=== PATIENT | male | born 1960 | race African-American/Black ===

== ENCOUNTER 2016-11-06 07:14 | Emergency (ER) | payer OTHER ==
[2016-11-06] VITALS (9 sets, daily range): BP systolic 145–184; BP diastolic 92–118; PULSE 84–115; RESP 16–25; TEMP 98.1; O2SAT 91–100
[~2016-11-06] VITALS: Ht 165.1 cm; Wt 70.0 kg
[~2016-11-06 07:14] MED LIST: ALBU0.08 NEB; ALBUAER3 INH; AMLO10 PO; HYDR-3516 PO; IPRASOL INH; IPRASOL NEB; MEDR4PAK PO; NICO7DIS2 T-DERMAL; SYMB160A INH
--- NOTE | 2016-11-06 07:27 | PD ---
HPI Chief Complaint: Respiratory Symptoms Time Seen by Provider: 07:27 Travel History International Travel<30 days: No Contact w/Intl Traveler<30days: No Traveled to known affect area: No History of Present Illness HPI 56-year-old male came to the emergency room with history of shortness of breath. Patient has history of asthma and says he ran out of all his medications including his nebulizer and inhalers. His symptoms have been going on for past 2 days. Patient has history of hypertension and has not taken his medications for very long time. His blood pressure was elevated in triage. Patient has had multiple admissions for COPD in the past including an ICU. He' s never been intubated he said. He is also complaining of some chest pain. [facility] Past Medical History Narrative Medical List of his past medical history is reviewed from the nursing note. Asthma: Yes Autoimmune Disease: No Cancer: No Cardiovascular Problems: Yes (HTN ) Congestive Heart Failure: No COPD: Yes Coronary Artery Disease: No Diabetes: No Diminished Hearing: No Endocrine: No Gastrointestinal Disorders: No Genitourinary: No Hepatitis: Yes (C) Hypertension: Yes (not treated) Immune Disorder: No Implanted Vascular Access Dvce: No Musculoskeletal: No Neurologic: No Psychiatric: No Reproductive: No Respiratory: Yes (COPD) Immunizations Current: Yes Past Surgical History Oral Surgery: Yes (JAW) Other Surgery: Yes Social History Alcohol Use: Yes (ONCE WEEKLY, ONE PT.) Tobacco Use: No (1 PPD) Substance Use: No Allergies-Medications (Allergen,Severity, Reaction): Coded Allergies: Penicillin (Verified Allergy, Severe, SOB, 11/06/16) Comments List of his allergies reviewed from the nursing note. Reported Meds & Prescriptions Reported Meds & Active Scripts Active Norvasc (Amlodipine Besylate) 10 Mg Tab 10 Mg PO DAILY Prednisone 20 Mg Tab 20 Mg PO BID 5 Days Ventolin Hfa 18 GM Inh (Albuterol Sulfate) 90 Mcg/Act Aer 2 Puff INH Q4H PRN Albuterol Neb (Albuterol Sulfate) 2.5 Mg/3 Ml Neb 2.5 Mg NEB Q4HR NEB While awake Hydrocodone-Acetaminophen 5-325 mg Tab 1 Tab PO HS PRN Duoneb (Ipratropium-Albuterol Neb) 0.5-2.5 Mg/3 Ml Neb 1 Ampule NEB Q6HR NEB Symbicort Inh (Budesonide/Formoterol Fumarate) 160-4.5 Mcg/Act Aero 1 Puff INH Q12HR Duoneb (Ipratropium-Albuterol Neb) 0.5-2.5 Mg/3 Ml Neb 1 Nebule INH Q6HR NEB Reported Proair Hfa 8.5 GM Inh (Albuterol Sulfate) 90 Mcg/Act Aer 1 Puff INH Q4H PRN 108 mcg/actuation Narrative Medication List of his home medications reviewed from the nursing note. Review of Systems Except as stated in HPI: all other systems reviewed are Neg Physical Exam Narrative GENERAL: Awake, alert, moderate distress SKIN: Warm and dry. HEAD: Atraumatic. Normocephalic. EYES: Pupils equal and round. No scleral icterus. No injection or drainage. ENT: No nasal bleeding or discharge. Mucous membranes pink and moist. NECK: Trachea midline. No JVD. CARDIOVASCULAR: Regular rate and rhythm. No murmur appreciated. RESPIRATORY: No accessory muscle use. Decreased air entry bilaterally, end expiratory wheeze GASTROINTESTINAL: Abdomen soft, non-tender, nondistended. Hepatic and splenic margins not palpable. MUSCULOSKELETAL: No obvious deformities. No clubbing. No cyanosis. No edema. NEUROLOGICAL: Awake and alert. No obvious cranial nerve deficits. Motor grossly within normal limits. Normal speech. PSYCHIATRIC: Appropriate mood and affect; insight and judgment normal. Data Data Last Documented VS Vital Signs Date Time Temp Pulse Resp B/P Pulse Ox O2 Delivery O2 Flow Rate FiO2 11/06/16 10:18 91 11/06/16 10:08 115 20 150/92 Room Air 11/06/16 09:00 2.00 11/06/16 07:30 98.1 Orders Electrocardiogram (11/06/16 07:31) Basic Metabolic Panel (Bmp) (11/06/16 07:31) Complete Blood Count With Diff (11/06/16 07:31) Ecg Monitoring (11/06/16 07:31) Iv Access Insert/Monitor (11/06/16 07:31) Oximetry (11/06/16 07:31) Oxygen Administration (11/06/16 07:31) Methylprednisolone So Succ Inj (Solumedr (11/06/16 07:45) Albuterol-Ipratropium Neb (Duoneb Neb) (11/06/16 07:45) Sodium Chloride 0.9% Flush (Ns Flush) (11/06/16 07:45) Troponin I (11/06/16 07:31) B-Type Natriuretic Peptide (11/06/16 07:31) Amlodipine (Norvasc) (11/06/16 07:45) Albuterol Neb (Albuterol Neb) (11/06/16 08:30) Chest, Single Ap (11/06/16 ) Labs Laboratory Tests Test 11/06/16 07:39 White Blood Count 4.3 TH/MM3 Red Blood Count 4.88 MIL/MM3 Hemoglobin 14.6 GM/DL Hematocrit 43.8 % Mean Corpuscular Volume 89.7 FL Mean Corpuscular Hemoglobin 29.9 PG Mean Corpuscular Hemoglobin 33.3 % Concent Red Cell Distribution Width 13.8 % Platelet Count 231 TH/MM3 Mean Platelet Volume 7.6 FL Neutrophils (%) (Auto) 38.0 % Lymphocytes (%) (Auto) 32.7 % Monocytes (%) (Auto) 12.4 % Eosinophils (%) (Auto) 15.5 % Basophils (%) (Auto) 1.4 % Neutrophils # (Auto) 1.6 TH/MM3 Lymphocytes # (Auto) 1.4 TH/MM3 Monocytes # (Auto) 0.5 TH/MM3 Eosinophils # (Auto) 0.7 TH/MM3 Basophils # (Auto) 0.1 TH/MM3 CBC Comment DIFF FINAL Differential Comment Sodium Level 141 MEQ/L Potassium Level 3.7 MEQ/L Chloride Level 106 MEQ/L Carbon Dioxide Level 26.3 MEQ/L Anion Gap 9 MEQ/L Blood Urea Nitrogen 14 MG/DL Creatinine 1.11 MG/DL Estimat Glomerular Filtration 83 ML/MIN Rate Random Glucose 80 MG/DL Calcium Level 8.5 MG/DL Troponin I LESS THAN 0.02 NG/ML B-Type Natriuretic Peptide 2 PG/ML MDM Medical Decision Making Medical Screen Exam Complete: Yes Emergency Medical Condition: Yes Medical Record Reviewed: Yes Interpretation(s) Twelve-lead EKG was reviewed by me. Normal sinus rhythm, normal axis, nonspecific ST-T wave changes. Heart rate of 84 bpm. Differential Diagnosis Asthma exacerbation, COPD exacerbation, ACS, CHF exacerbation Narrative Course 8:04 AM CBC is back and within normal limits. Patient has received 3 DuoNeb treatments along with IV Solu-Medrol bolus. Awaiting for the chemistry and troponin to be resulted. Awaiting for the chest x-ray to be done and resulted. I will reassess him in a bit. 8:24 AM blood test results of back and within normal limit. Awaiting for the BNP and the x-ray. I just reassessed him and he has much better air entry. He still has some end expiratory wheeze and have ordered 3 more albuterol. Procedures EKG Prior to Arrival: No Diagnosis Primary Impression: Acute asthma exacerbation Qualified Code: J45.41 - Moderate persistent asthma with acute exacerbation Referrals: Primary Care Physician 2 days Additional Instructions: Please return to the ER if the condition worsens or any other new concerns. Otherwise follow-up with your primary care. Med/Other Pt SpecificInfo: Prescription(s) given Scripts Amlodipine (Norvasc)10 Mg Tab10 Mg PO DAILY #30 TAB Ref 0 Prov:Jeniffer Guevara MD 11/06/16 Prednisone 20 Mg Tab20 Mg PO BID 5 Days Ref 0 Prov:Jeniffer Guevara MD 11/06/16 Albuterol 18 GM Inh (Ventolin Hfa 18 GM Inh)90 Mcg/Act Aer2 Puff INH Q4H PRN ( SHORTNESS OF BREATH) #1 INHALER Ref 0 Prov:Jeniffer Guevara MD 11/06/16 Albuterol Neb 2.5 Mg/3 Ml Neb2.5 Mg NEB Q4HR NEB #60 NEBULE Ref 0 While awake Prov:Jeniffer Guevara MD 11/06/16 Disposition: 01 DISCHARGE HOME Condition: Stable Jeniffer Guevara MD Nov 06, 2016 07:27
[2016-11-06] MEDS: RESP: ALBUTEROL 2.5 MG/IPRATROPIUM 0.5 MG NEB (SCH) INH (07:41)
[2016-11-06] MEDS ORDERED: methylPREDNISolone SOD SUCC 125 MG/2 ML VIAL IVP ONE (07:45)
[2016-11-06] MEDS ORDERED: SODIUM CHLORIDE 0.9% FLUSH 5 ML FLUSH IVF PRN (07:45)
[2016-11-06 07:47] LABS: AUTOMATED NEUTROPHIL # 1.6 TH/MM3 (1.8-7.7); BASOPHIL # 0.1 TH/MM3 (0-0.2); BASOPHIL % 1.4 % (0.0-2.0); EOSINOPHIL # 0.7 TH/MM3 (0-0.4); EOSINOPHIL % 15.5 % (0.0-4.0); HEMATOCRIT 43.8 % (39.0-51.0); HEMO FLAGS DIFF FINAL; LYMPH % 32.7 % (9.0-44.0); LYMPHOCYTE # 1.4 TH/MM3 (1.0-4.8); MEAN CELL VOLUME 89.7 FL (80.0-100.0); MEAN CORPUSCULAR HEMOGLOBIN 29.9 PG (27.0-34.0); MEAN CORPUSCULAR HGB CONC 33.3 % (32.0-36.0); MONO % 12.4 % (0.0-8.0); PLATELET COUNT 231 TH/MM3 (150-450); RED BLOOD COUNT 4.88 MIL/MM3 (4.50-5.90); RED CELL DISTRIBUTION WIDTH 13.8 % (11.6-17.2); WHITE BLOOD COUNT 4.3 TH/MM3 (4.0-11.0)
[2016-11-06 08:06] LABS: ANION GAP 9 MEQ/L (5-15); BICARBONATE 26.3 MEQ/L (21.0-32.0); BLOOD UREA NITROGEN 14 MG/DL (7-18); CHLORIDE 106 MEQ/L (98-107); GLOMERULAR FILTRATION RATE 83 ML/MIN (>89); POTASSIUM 3.7 MEQ/L (3.5-5.1); SODIUM (NA) 141 MEQ/L (136-145)
[2016-11-06] MEDS: RESP: ALBUTEROL 2.5 MG/3 ML NEB (SCH) INH (08:30)
--- NOTE | 2016-11-06 08:51 | RADRPT ---
EXAM DATE/TIME: 11/06/2016 08:28 [facility] COMPARISON: CHEST SINGLE AP, September 05, 2016, 20:52. INDICATIONS : Short of Breath, Chest Pain. MEDICAL HISTORY : Chronic obstructive pulmonary disease. SURGICAL HISTORY : None. ENCOUNTER: Initial ACUITY: 1 week PAIN SCORE: 5/10 LOCATION: Bilateral chest FINDINGS: A single view of the chest demonstrates the lungs to be symmetrically aerated without evidence of mas s, infiltrate or effusion. The cardiomediastinal contours are unremarkable. Osseous structures are intact. CONCLUSION: Normal examination. Cliff Romero MD on November 06, 2016 at 8:49 Board Certified Radiologist. This report was verified electronically.
[2016-11-06] MEDS ORDERED: PRED20 PO (09:46)
[2016-11-06] MEDS ORDERED: VENTAER INH (09:46)
[2016-11-06] MEDS ORDERED: ALBU0.08 NEB (09:46)
[2016-11-06] MEDS ORDERED: AMLO10 PO (10:15)
--- NOTE | 2016-11-06 14:22 | EKG ---
Date Performed: 11/06/2016 Time Performed: 07:35:49 PTAGE: 56 years EKG: Sinus rhythm NORMAL ECG Compared to prior tracing no significant change PREVIOUS TRACING : 08/21/2016 21.36 DOCTOR: Constantino Luke Interpretating Date/Time 11/06/2016 14:18:19
== END 2016-11-06 10:22 | disposition home or self-care (01) ==
LOC: NEPC 07:14
DX: J45.901 Unspecified asthma with (acute) exacerbation (principal); I10 Essential (primary) hypertension; R07.9 Chest pain, unspecified
CPT/HCPCS: 71010; 80048; 83880; 84484; 85025; 93005; 94640; 94664; 96374; 99285; J2930; J7613

== ENCOUNTER 2016-11-16 21:44 | Emergency (ER) | payer OTHER ==
[~2016-11-16] VITALS: Ht 165.1 cm; Wt 73.0 kg
[~2016-11-16 21:44] MED LIST changes: -MEDR4PAK PO; -NICO7DIS2 T-DERMAL; +PRED20 PO; +VENTAER INH
[2016-11-16 21:46] VITALS: BP 168/94; PULSE 92; RESP 24; TEMP 97.8; O2SAT 92
[2016-11-16 23:00] VITALS: BP 188/118; PULSE 83; RESP 26; O2SAT 89
[2016-11-16 23:05] LABS: AUTOMATED NEUTROPHIL # 3.6 TH/MM3 (1.8-7.7); BASOPHIL # 0.1 TH/MM3 (0-0.2); BASOPHIL % 0.9 % (0.0-2.0); EOSINOPHIL # 0.7 TH/MM3 (0-0.4); EOSINOPHIL % 9.5 % (0.0-4.0); HEMO FLAGS DIFF FINAL; LYMPH % 34.1 % (9.0-44.0); LYMPHOCYTE # 2.5 TH/MM3 (1.0-4.8); MEAN CELL VOLUME 89.6 FL (80.0-100.0); MEAN CORPUSCULAR HGB CONC 33.5 % (32.0-36.0); MONO % 6.5 % (0.0-8.0); PLATELET COUNT 238 TH/MM3 (150-450); RED BLOOD COUNT 4.68 MIL/MM3 (4.50-5.90); WHITE BLOOD COUNT 7.4 TH/MM3 (4.0-11.0)
--- NOTE | 2016-11-16 23:22 | RADRPT ---
EXAM DATE/TIME: 11/16/2016 23:00 [facility] COMPARISON: CHEST SINGLE AP, September 05, 2016, 20:52. CHEST SINGLE AP, November 06, 2016, 8:28. INDICATIONS : Short of breath and congestion for several days. MEDICAL HISTORY : Chronic obstructive pulmonary disease. Asthma. SURGICAL HISTORY : None. ENCOUNTER: Initial ACUITY: 3 days PAIN SCORE: 4/10 LOCATION: Bilateral chest FINDINGS: PA and lateral views of the chest demonstrate the lungs to be symmetrically aerated without evidence of mass, infiltrate or effusion. There is hyperaeration of the lung moran. There is some scarring i n the right apex. The cardiomediastinal contours are unremarkable. Osseous structures are intact. CONCLUSION: No acute disease. No significant change has occurred. Julius Phelps MD on November 16, 2016 at 23:19 Board Certified Radiologist. This report was verified electronically.
[2016-11-16] MEDS ORDERED: oxyCODONE/ACETAMINOPHEN 10 MG/325 MG TAB PO ONE (23:30)
[2016-11-16] MEDS ORDERED: methylPREDNISolone SOD SUCC 125 MG/2 ML VIAL IVP ONE (23:30)
[2016-11-16] MEDS: RESP: ALBUTEROL 2.5 MG/IPRATROPIUM 0.5 MG NEB (SCH) INH (23:40)
[2016-11-17] MEDS ORDERED: PRED20 PO (00:28)
[2016-11-17 00:29] VITALS: BP 164/105; PULSE 92; RESP 16; O2SAT 95
--- NOTE | 2016-11-17 00:29 | PD ---
HPI Chief Complaint: Respiratory Symptoms Time Seen by Provider: 23:02 Travel History International Travel<30 days: No Contact w/Intl Traveler<30days: No Traveled to known affect area: No History of Present Illness HPI 56-year-old male arrives to the ER complaining of shortness of breath wheezing and chest tightness. Symptoms have present for a few hours. Onset occurred at rest. He smokes tobacco. He states symptoms feel similar to prior COPD exacerbations. Typically an albuterol inhaler helps. He did not have one today. He does not recall last time he is steroids. He denies fever. No diaphoresis nausea vomiting and lightheadedness. PFSH Past Medical History Asthma: Yes Autoimmune Disease: No Cancer: No Cardiovascular Problems: Yes (HTN) Congestive Heart Failure: No COPD: Yes Coronary Artery Disease: No Diabetes: No Diminished Hearing: No Endocrine: No Gastrointestinal Disorders: No Genitourinary: No Hepatitis: Yes (C) Hypertension: Yes (not treated) Immune Disorder: No Implanted Vascular Access Dvce: No Musculoskeletal: No Neurologic: No Psychiatric: No Reproductive: No Respiratory: Yes (COPD) Immunizations Current: Yes Past Surgical History Oral Surgery: Yes (JAW) Other Surgery: Yes Social History Alcohol Use: Yes (ONCE WEEKLY) Tobacco Use: Yes (QUIT, RECENTLY SMOKED SOME) Substance Use: No Allergies-Medications (Allergen,Severity, Reaction): Coded Allergies: Penicillin (Verified Allergy, Severe, SOB, 11/16/16) Reported Meds & Prescriptions Reported Meds & Active Scripts Active Hydrocodone-Acetaminophen 5-325 mg Tab 1 Tab PO HS PRN Prednisone 20 Mg Tab 40 Mg PO DAILY 5 Days Norvasc (Amlodipine Besylate) 10 Mg Tab 10 Mg PO DAILY Ventolin Hfa 18 GM Inh (Albuterol Sulfate) 90 Mcg/Act Aer 2 Puff INH Q4H PRN Albuterol Neb (Albuterol Sulfate) 2.5 Mg/3 Ml Neb 2.5 Mg NEB Q4HR NEB While awake Symbicort Inh (Budesonide/Formoterol Fumarate) 160-4.5 Mcg/Act Aero 1 Puff INH Q12HR Duoneb (Ipratropium-Albuterol Neb) 0.5-2.5 Mg/3 Ml Neb 1 Nebule INH Q6HR NEB Review of Systems Except as stated in HPI: all other systems reviewed are Neg Physical Exam Narrative GENERAL: 56-year-old male mild to moderate respiratory distress SKIN: Warm and dry. HEAD: Atraumatic. Normocephalic. EYES: Pupils equal and round. No scleral icterus. No injection or drainage. ENT: No nasal bleeding or discharge. Mucous membranes pink and moist. NECK: Trachea midline. No JVD. CARDIOVASCULAR: Tachycardia. Regular rhythm. RESPIRATORY: Tachypnea. Wheezing present bilaterally. GASTROINTESTINAL: Abdomen soft, non-tender, nondistended. Hepatic and splenic margins not palpable. MUSCULOSKELETAL: No obvious deformities. No clubbing. No cyanosis. No edema. NEUROLOGICAL: Awake and alert. No obvious cranial nerve deficits. Motor grossly within normal limits. Normal speech. PSYCHIATRIC: Appropriate mood and affect; insight and judgment normal. Data Data Last Documented VS Vital Signs Date Time Temp Pulse Resp B/P Pulse Ox O2 Delivery O2 Flow Rate FiO2 11/17/16 00:29 92 16 164/105 95 Nasal Cannula 2 11/16/16 21:46 97.8 Vital signs reviewed Orders Electrocardiogram (11/16/16 ) Complete Blood Count With Diff (11/16/16 22:37) Chest, Pa & Lat (11/16/16 22:37) Methylprednisolone So Succ Inj (Solumedr (11/16/16 23:30) Albuterol-Ipratropium Neb (Duoneb Neb) (11/16/16 23:30) Oxycodone-Acetamin 10-325 Mg (Percocet 1 (11/16/16 23:30) Albuterol Hfa Inh (Proair Hfa Inh) (11/17/16 00:45) Labs Laboratory Tests Test 11/16/16 22:46 White Blood Count 7.4 TH/MM3 Red Blood Count 4.68 MIL/MM3 Hemoglobin 14.1 GM/DL Hematocrit 42.0 % Mean Corpuscular Volume 89.6 FL Mean Corpuscular Hemoglobin 30.0 PG Mean Corpuscular Hemoglobin 33.5 % Concent Red Cell Distribution Width 14.0 % Platelet Count 238 TH/MM3 Mean Platelet Volume 7.6 FL Neutrophils (%) (Auto) 49.0 % Lymphocytes (%) (Auto) 34.1 % Monocytes (%) (Auto) 6.5 % Eosinophils (%) (Auto) 9.5 % Basophils (%) (Auto) 0.9 % Neutrophils # (Auto) 3.6 TH/MM3 Lymphocytes # (Auto) 2.5 TH/MM3 Monocytes # (Auto) 0.5 TH/MM3 Eosinophils # (Auto) 0.7 TH/MM3 Basophils # (Auto) 0.1 TH/MM3 CBC Comment DIFF FINAL Differential Comment MDM Medical Decision Making Medical Screen Exam Complete: Yes Emergency Medical Condition: Yes Medical Record Reviewed: Yes Differential Diagnosis COPD, pneumonia, anemia, pneumothorax Narrative Course CBC & BMP Diagram 11/16/16 22:46 Last 24 hours Impressions Chest X-Ray 11/16/160 Signed Impressions: Service Date/Time: Wednesday, November 16, 2016 23:00 - CONCLUSION: No acute disease. No significant change has occurred. Julius Phelps MD The patient is resting comfortably and feels better, is alert and in no distress. The patients results and examination findings were discussed. The repeat examination is unremarkable and benign. The history, exam, diagnostic testing, and current condition do not suggest any significant pathology to warrant further testing, continued ED treatment, admission, or surgical evaluation at this point. The vital signs have been stable. The patient does not have uncontrollable pain, intractable vomiting, or other significant symptoms. The patient's condition is stable and appropriate for discharge. The patient will pursue further outpatient evaluation with a primary care physician or other designated or consulting physician as indicated in the discharge instructions. The patient expressed understanding and was agreeable with this plan. Diagnosis Primary Impression: COPD (chronic obstructive pulmonary disease) Qualified Code: J44.9 - Chronic obstructive pulmonary disease, unspecified COPD type Referrals: Mariama Ruano MD 2 days Additional Instructions: You have a choice when it comes to health care, and we are glad that you chose [facility] Hopefully, we have met your expectations on today's visit. You are welcome to return to [facility] at any time, as we are committed to meeting the health care needs of our community. Med/Other Pt SpecificInfo: Prescription(s) given Scripts Hydrocodone-Acetaminophen 5-325 mg Tab1 Tab PO HS PRN (pain) #6 TAB Ref 0 Prov:Omid Bailey MD 11/17/16 Prednisone 20 Mg Tab40 Mg PO DAILY 5 Days Ref 0 Prov:Omid Bailey MD 11/17/16 Disposition: 01 DISCHARGE HOME Condition: Stable Omid Bailey C. MD Nov 17, 2016 00:29
[2016-11-17] MEDS ORDERED: HYDR-3516 PO (00:35)
[2016-11-17] MEDS ORDERED: ALBUTEROL SULFATE 90 MCG/ACT HFA 8 GM INHALER INH ONE (00:45)
--- NOTE | 2016-11-17 08:49 | EKG ---
Date Performed: 11/16/2016 Time Performed: 22:47:23 PTAGE: 56 years EKG: Sinus rhythm NORMAL ECG INTERPRETATION BASED ON A DEFAULT AGE OF 40 YEARS NO SIGNIFICANT CHANGE FROM PRIOR ELECTR OCARDIOGRAM. PREVIOUS TRACING : 11/06/2016 07.35 DOCTOR: Cecil Nogueira Interpretating Date/Time 11/17/2016 08:48:12
== END 2016-11-17 00:46 | disposition home or self-care (01) ==
LOC: NEPC 21:44
DX: J44.9 Chronic obstructive pulmonary disease, unspecified (principal); R07.89 Other chest pain; I10 Essential (primary) hypertension; Z87.09 Personal history of other diseases of the respiratory system; Z86.19 Personal history of other infectious and parasitic diseases; Z87.891 Personal history of nicotine dependence
CPT/HCPCS: 71020; 85025; 93005; 94640; 94664; 96374; 99284; J2930

== ENCOUNTER 2017-04-06 22:19 | Inpatient (IN) | payer MEDICAID, OTHER ==
[~2017-04-06] VITALS: Ht 167.6 cm; Wt 73.7 kg
[2017-04-06 22:12] VITALS: O2SAT 98
[~2017-04-06 22:19] MED LIST changes: -ALBUAER3 INH; -IPRASOL NEB
[2017-04-06 22:21] VITALS: BP 175/95; PULSE 87; RESP 40; TEMP 98.2; O2SAT 100
[2017-04-06] MEDS ORDERED: methylPREDNISolone SOD SUCC 125 MG/2 ML VIAL IVP ONE (22:30)
[2017-04-06] MEDS: RESP: ALBUTEROL 2.5 MG/IPRATROPIUM 0.5 MG NEB (SCH) INH ×3 (22:30→22:47)
[2017-04-06 22:40] VITALS: O2SAT 98
[2017-04-06 22:41] LABS: BLOOD GAS BASE EXCESS 1.6 mmol/L (-2-2); BLOOD GAS CARBOXYHEMOGLOBIN 2.5 % (0-4); BLOOD GAS HCO3 27 mmol/L (22-26); BLOOD GAS METHEMOGLOBIN 0.7 % (0-2); BLOOD GAS O2 HGB SATURATION 97 % (90-100); BLOOD GAS OXYGEN CONTENT 21.3 Vol % (12.0-20.0); BLOOD GAS PCO2 52 mmHg (38-42); BLOOD GAS PO2 539 mmHG (61-120); BLOOD GAS TOTAL HGB 14.6 G/DL (12.0-16.0); TEMP CORR TO 98.6
[2017-04-06 22:42] LABS: CRITICAL VALUE YES
[2017-04-06 22:43] LABS: DRAW SITE RT RADIAL; FIO2 100 %; NUMBER OF ARTERIAL PUNCTURES 1; OXYGEN DEVICE NPPV; STAT YES; ULNAR PULSE PRESENT; VENT SETTINGS IPAP12/EPAP5
--- NOTE | 2017-04-06 22:44 | PD ---
HPI Chief Complaint: Respiratory Distress Time Seen by Provider: 22:40 Travel History International Travel<30 days: No Contact w/Intl Traveler<30days: No Traveled to known affect area: No History of Present Illness HPI 57-year-old male that comes here by ambulance for evaluation of shortness of breath. Patient has a chronic history of COPD. Patient called the ambulance because he was very short of breath. Per ambulance report wending unseen patient was having a lot of difficulty breathing. Patient was put on a BiPAP and given breathing treatments as well as nitroglycerin and Lasix and brought here. Initially patient had bad wheezing and rales in the lower lung moran and apparently he also had an oxygen level in the 80s. Patient was put on the BiPAP as well as with breathing treatments and his symptoms improved feeling improved. O2 now is in the high 90s. When I asked the patient this feels similar to his previous COPD exacerbations he states that it is. Per patient he used to smoke but has not smoked in years. Patient states that the chest pain and all the symptoms are similar to his previous episodes. I asked the patient if he had any cold or any sick like symptoms before this started and he tells me that for the past couple days he was kind of sick with fever and runny nose. Per patient uses inhalers at home but today became severe. Symptoms got more severe about an hour ago. He denies any abdominal pain. Nausea or vomiting. No bowel movement or urinary issues. He has a history of heart disease or CHF. Denies any other issues at this time. PFSH Past Medical History Asthma: Yes Autoimmune Disease: No Cancer: No Cardiovascular Problems: Yes (HTN) Congestive Heart Failure: No COPD: Yes Coronary Artery Disease: No Diabetes: No Diminished Hearing: No Endocrine: No Gastrointestinal Disorders: No Genitourinary: No Hepatitis: Yes (C) Hypertension: Yes (not treated) Immune Disorder: No Implanted Vascular Access Dvce: No Musculoskeletal: No Neurologic: No Psychiatric: No Reproductive: No Respiratory: Yes (COPD) Immunizations Current: Yes Tetanus Vaccination: < 5 Years Influenza Vaccination: No Past Surgical History Oral Surgery: Yes (JAW) Other Surgery: Yes Social History Alcohol Use: No Tobacco Use: Yes Substance Use: No Allergies-Medications (Allergen,Severity, Reaction): Coded Allergies: Penicillin (Verified Allergy, Severe, SOB, 11/16/16) Reported Meds & Prescriptions Reported Meds & Active Scripts Active Hydrocodone-Acetaminophen 5-325 mg Tab 1 Tab PO HS PRN Prednisone 20 Mg Tab 40 Mg PO DAILY 5 Days Norvasc (Amlodipine Besylate) 10 Mg Tab 10 Mg PO DAILY Ventolin Hfa 18 GM Inh (Albuterol Sulfate) 90 Mcg/Act Aer 2 Puff INH Q4H PRN Albuterol Neb (Albuterol Sulfate) 2.5 Mg/3 Ml Neb 2.5 Mg NEB Q4HR NEB While awake Symbicort Inh (Budesonide/Formoterol Fumarate) 160-4.5 Mcg/Act Aero 1 Puff INH Q12HR Duoneb (Ipratropium-Albuterol Neb) 0.5-2.5 Mg/3 Ml Neb 1 Nebule INH Q6HR NEB Review of Systems Except as stated in HPI: all other systems reviewed are Neg Physical Exam Narrative GENERAL: Well-nourished, well-developed patient in no apparent distress. SKIN: Warm and dry. HEAD: Atraumatic. Normocephalic. EYES: Pupils equal and round reactive to light and accommodation. No scleral icterus. No injection or drainage. ENT: No nasal bleeding or discharge. Mucous membranes pink and moist. TMs are clear with no sign of infection or perforation. No mastoid tenderness. Ear canals are intact bilaterally. No lymphadenopathy. Nostril mucosa is red and moist with clear mucus noted. No sinus tenderness to palpation noted. Tonsils are not enlarged or swollen. No ulvua Deviation. Tongue is midline. NECK: Trachea midline. No JVD. No meningeal signs noted CARDIOVASCULAR: Regular rate and rhythm. RESPIRATORY: No accessory muscle use. Patient has minimal wheezing in the lower lung moran. Breath sounds equal bilaterally. GASTROINTESTINAL: Abdomen soft, non-tender, nondistended. Hepatic and splenic margins not palpable. MUSCULOSKELETAL: Extremities without clubbing, cyanosis, or edema. No obvious deformities. NEUROLOGICAL: Awake and alert. No obvious cranial nerve deficits. Motor grossly within normal limits. Five out of 5 muscle strength in the arms and legs. Normal speech. PSYCHIATRIC: Appropriate mood and affect; insight and judgment normal. Data Data Last Documented VS Vital Signs Date Time Temp Pulse Resp B/P Pulse Ox O2 Delivery O2 Flow Rate FiO2 04/06/17 22:26 100 BiPAP 100 04/06/17 22:21 98.2 87 40 175/95 Orders Electrocardiogram (04/06/17 22:23) Arterial Blood Gas (Abg) (04/06/17 22:23) Basic Metabolic Panel (Bmp) (04/06/17 22:23) Complete Blood Count With Diff (04/06/17 22:23) Chest, Single Ap (04/06/17 22:23) Ecg Monitoring (04/06/17 22:23) Iv Access Insert/Monitor (04/06/17 22:23) Oximetry (04/06/17 22:23) Oxygen Administration (04/06/17 22:23) Methylprednisolone So Succ Inj (Solumedr (04/06/17 22:30) Albuterol-Ipratropium Neb (Duoneb Neb) (04/06/17 22:30) B-Type Natriuretic Peptide (04/06/17 22:24) Resp Bipap / Cpap Non Invas Vt (04/06/17 ) Troponin I (04/06/17 22:25) Ckmb (Isoenzyme) Profile (04/06/17 22:25) MDM Medical Decision Making Medical Screen Exam Complete: Yes Emergency Medical Condition: Yes Medical Record Reviewed: Yes Differential Diagnosis COPD exacerbation versus asthma versus chest pain versus less likely ACS versus CHF Narrative Course 57-year-old male that presents to the ED for evaluation of shortness of breath. Patient was properly examined and was found to have signs and symptoms very consistent what appears to be an acute COPD exacerbation. Patient has a history of this in the past not reviewed his records and his been here multiple times for the same. I asked the patient this is similar to his. Symptoms since this is the same. He does appear to be more severe today. Patient already on BiPAP by ambulance. Patient will be kept on BiPAP and given 3 breathing treatments here. Patient was given Solu-Medrol. Labs and imaging were ordered. Case was discussed with my attending Dr. Carranza who agrees with plan. Case will be signed out to him pending imaging and labs and likely admission. Diagnosis Primary Impression: COPD (chronic obstructive pulmonary disease) Qualified Code: J44.1 - Chronic obstructive pulmonary disease with acute exacerbation Bucky Aguillon Apr 06, 2017 22:44
[2017-04-06 22:52] LABS: AUTOMATED NEUTROPHIL # 1.7 TH/MM3 (1.8-7.7); BASOPHIL # 0.1 TH/MM3 (0-0.2); BASOPHIL % 1.2 % (0.0-2.0); EOSINOPHIL # 0.4 TH/MM3 (0-0.4); EOSINOPHIL % 8.9 % (0.0-4.0); HEMATOCRIT 44.1 % (39.0-51.0); HEMO FLAGS DIFF FINAL; LYMPH % 44.3 % (9.0-44.0); LYMPHOCYTE # 2.1 TH/MM3 (1.0-4.8); MEAN CELL VOLUME 93.2 FL (80.0-100.0); MEAN CORPUSCULAR HEMOGLOBIN 30.6 PG (27.0-34.0); MEAN CORPUSCULAR HGB CONC 32.8 % (32.0-36.0); MONO % 10.2 % (0.0-8.0); NEUT % 35.4 % (16.0-70.0); PLATELET COUNT 236 TH/MM3 (150-450); RED BLOOD COUNT 4.73 MIL/MM3 (4.50-5.90); RED CELL DISTRIBUTION WIDTH 15.3 % (11.6-17.2); WHITE BLOOD COUNT 4.8 TH/MM3 (4.0-11.0)
[2017-04-06 23:13] LABS: CREATINE KINASE 873 U/L (39-308)
[2017-04-06 23:25] LABS: CKMB 4.3 NG/ML (0.5-3.6)
--- NOTE | 2017-04-06 23:31 | RADRPT ---
EXAM DATE/TIME: 04/06/2017 22:58 [facility] COMPARISON: CHEST PA & LAT, November 16, 2016, 23:00. INDICATIONS : Shortness of breath, wheezing. MEDICAL HISTORY : Chronic obstructive pulmonary disease. Asthma. SURGICAL HISTORY : None. ENCOUNTER: Initial ACUITY: 1 day PAIN SCORE: 0/10 LOCATION: Bilateral chest FINDINGS: The lungs are clear without infiltrate, nodule, or mass. There is no appreciable pleural effusion fo r technique. Heart and mediastinum are unremarkable. CONCLUSION: No acute cardiopulmonary disease. Evon Eaton MD on April 06, 2017 at 23:29 Board Certified Radiologist. This report was verified electronically.
[2017-04-06 23:33] VITALS: BP 143/99; PULSE 66; RESP 16; O2SAT 100
[2017-04-06 23:42] LABS: BICARBONATE 27.5 MEQ/L (21.0-32.0); BLOOD UREA NITROGEN 12 MG/DL (7-18); GLOMERULAR FILTRATION RATE 74 ML/MIN (>89)
[2017-04-06 23:47] LABS: ANION GAP 10 MEQ/L (5-15); CHLORIDE 105 MEQ/L (98-107); POTASSIUM 3.4 MEQ/L (3.5-5.1); SODIUM (NA) 142 MEQ/L (136-145)
[2017-04-06 23:55] VITALS: PULSE 66; RESP 18; O2SAT 99
[2017-04-07] VITALS (10 sets, daily range): BP systolic 135–169; BP diastolic 78–97; PULSE 72–92; RESP 18; TEMP 96.1–97.7; O2SAT 95–98
[2017-04-07] MEDS ORDERED: RESP: ALBUTEROL 2.5 MG/IPRATROPIUM 0.5 MG NEB (SCH) NEB
--- NOTE | 2017-04-07 00:40 | PD ---
Data Data Last Documented VS Vital Signs Date Time Temp Pulse Resp B/P Pulse Ox O2 Delivery O2 Flow Rate FiO2 04/07/17 00:08 97 Nasal Cannula 2.00 04/06/17 23:55 66 18 04/06/17 23:33 143/99 04/06/17 22:40 30 04/06/17 22:21 98.2 Orders Electrocardiogram (04/06/17 22:23) Arterial Blood Gas (Abg) (04/06/17 22:23) Complete Blood Count With Diff (04/06/17 22:23) Chest, Single Ap (04/06/17 22:23) Ecg Monitoring (04/06/17 22:23) Iv Access Insert/Monitor (04/06/17 22:23) Oximetry (04/06/17 22:23) Oxygen Administration (04/06/17 22:23) Methylprednisolone So Succ Inj (Solumedr (04/06/17 22:30) Albuterol-Ipratropium Neb (Duoneb Neb) (04/06/17 22:30) B-Type Natriuretic Peptide (04/06/17 22:24) Resp Bipap / Cpap Non Invas Vt (04/06/17 ) Troponin I (04/06/17 22:25) Ckmb (Isoenzyme) Profile (04/06/17 22:25) CKMB (04/06/17 22:30) CKMB% (04/06/17 22:30) Basic Metabolic Panel (Bmp) (04/06/17 22:30) Albuterol-Ipratropium Neb (Duoneb Neb) (04/07/17 00:00) Labs Laboratory Tests Test 04/06/17 04/06/17 22:25 22:30 Blood Gas Puncture Site RT RADIAL Blood Gas Patient Temperature 98.6 Blood Gas HCO3 27 mmol/L Blood Gas Base Excess 1.6 mmol/L Blood Gas Oxygen Saturation 97 % Arterial Blood pH 7.33 Arterial Blood Partial 52 mmHg Pressure CO2 Arterial Blood Partial 539 mmHG Pressure O2 Arterial Blood Oxygen Content 21.3 Vol % Arterial Blood 2.5 % Carboxyhemoglobin Arterial Blood Methemoglobin 0.7 % Blood Gas Hemoglobin 14.6 G/DL Oxygen Delivery Device NPPV Blood Gas Ventilator Setting IPAP12/EPAP5 Blood Gas Inspired Oxygen 100 % White Blood Count 4.8 TH/MM3 Red Blood Count 4.73 MIL/MM3 Hemoglobin 14.5 GM/DL Hematocrit 44.1 % Mean Corpuscular Volume 93.2 FL Mean Corpuscular Hemoglobin 30.6 PG Mean Corpuscular Hemoglobin 32.8 % Concent Red Cell Distribution Width 15.3 % Platelet Count 236 TH/MM3 Mean Platelet Volume 8.2 FL Neutrophils (%) (Auto) 35.4 % Lymphocytes (%) (Auto) 44.3 % Monocytes (%) (Auto) 10.2 % Eosinophils (%) (Auto) 8.9 % Basophils (%) (Auto) 1.2 % Neutrophils # (Auto) 1.7 TH/MM3 Lymphocytes # (Auto) 2.1 TH/MM3 Monocytes # (Auto) 0.5 TH/MM3 Eosinophils # (Auto) 0.4 TH/MM3 Basophils # (Auto) 0.1 TH/MM3 CBC Comment DIFF FINAL Differential Comment Sodium Level 142 MEQ/L Potassium Level 3.4 MEQ/L Chloride Level 105 MEQ/L Carbon Dioxide Level 27.5 MEQ/L Anion Gap 10 MEQ/L Blood Urea Nitrogen 12 MG/DL Creatinine 1.22 MG/DL Estimat Glomerular Filtration 74 ML/MIN Rate Random Glucose 133 MG/DL Calcium Level 8.9 MG/DL Total Creatine Kinase 873 U/L Creatine Kinase MB 4.3 NG/ML Creatine Kinase MB % 0.5 % Troponin I LESS THAN 0.02 NG/ML B-Type Natriuretic Peptide 5 PG/ML MDM Supervised Visit with LOY: Yes Narrative Course The history, exam, and medical decision-making in the associated mid-level provider note were completed with my assistance. I reviewed and agree with the findings presented. I attest that I had a [id number] encounter with the patient on the same day, and personally performed and documented my assessment and findings in the medical record. *My assessment and Findings: 57 year woman, history of COPD, who was COPD exacerbation. URI prodrome for the past couple days. Worsening trouble breathing today. Treated with Lasix and BiPAP and nitroglycerin with EMS. No history of heart failure. Looks well. No evidence of volume overload. Responded well to BiPAP, was able to come off after about 2 hours in the ED. Continue bronchodilators, steroids, antibiotics, admit for COPD exacerbation. Diagnosis Primary Impression: COPD (chronic obstructive pulmonary disease) Qualified Code: J44.1 - Chronic obstructive pulmonary disease with acute exacerbation Cliff Carranza MD Apr 07, 2017 00:40
[2017-04-07] MEDS ORDERED: RESP: ALBUTEROL 2.5 MG/IPRATROPIUM 0.5 MG NEB (PRN) NEB (00:45)
[2017-04-07] MEDS ORDERED: SODIUM CHLORIDE 0.9% FLUSH 10 ML FLUSH IV FLUSH PRN (00:45)
[2017-04-07] MEDS ORDERED: POTASSIUM CHLORIDE 25 MEQ EFFERVESCENT TAB PO ONE (00:45)
[2017-04-07] MEDS ORDERED: AZITHROMYCIN INJ 500 MG in SODIUM CHLOR 0.9% 250 ML INJ 250 ML IV ONE (00:45)
[2017-04-07] MEDS ORDERED: NALOXONE HCL 0.4 MG/ML AMP IV PRN (00:45)
[2017-04-07] MEDS ORDERED: MORPHINE SULFATE 4 MG/ML INJ IV PUSH PRN (03:15)
--- NOTE | 2017-04-07 03:23 | HHI.HP ---
[facility] Service [facility] Primary Care Physician Ruth Mayo MD Admission Diagnosis COPD exacerbation Diagnoses: Travel History International Travel<30 Days: No Contact w/Intl Traveler <30 Da: No Traveled to Known Affected Are: No History of Present Illness short of rbeath on exertion few days worsened today had a drink etoh drink and that may have exacerbated it no cough no fever did not help with nebs at home was kneeling over after openign door to breathe nephew called ambulance started urinating and defecating and sweating down on knees while waiting oxygen makes it feel better no nausea/no vomting diarrhea abotu 1 week abotu 2-3 x a day has not taken any meds or antibiotics run out of pump Review of Systems Except as stated in HPI: all other systems reviewed are Neg Past Family Social History Past Medical History copd htn Past Surgical History fractured jaw sx umbilical hernia sx Allergies: Coded Allergies: Penicillin (Verified Allergy, Severe, SOB, 11/16/16) Family History mother- dm brother- copd Social History trying to quit , smoked since 10yo used to drink moderately, now drinks about 3 x a week, about two half a pint each time no drugs - weed only Physical Exam Vital Signs Vital Signs Date Time Temp Pulse Resp B/P Pulse Ox O2 Delivery O2 Flow Rate FiO2 04/07/17 01:22 73 18 135/92 Nasal Cannula 4 04/07/17 00:08 97 Nasal Cannula 2.00 04/06/17 23:55 66 18 99 Nasal Cannula 4 04/06/17 23:33 66 16 143/99 100 BiPAP 04/06/17 22:40 98 30 04/06/17 22:26 100 BiPAP 100 04/06/17 22:26 100 BiPAP 100 04/06/17 22:21 98.2 87 40 175/95 100 04/06/17 22:12 98 100 04/06/17 22:12 98 100 Physical Exam GENERAL: This is a well-nourished, well-developed patient, in no apparent distress. SKIN: No rashes, ecchymoses or lesions. Cool and dry. HEAD: Atraumatic. Normocephalic. No temporal or scalp tenderness. EYES: No scleral icterus. No injection or drainage. ENT: Nose without bleeding, purulent drainage or septal hematoma. Airway patent. NECK: Trachea midline. No JVD CARDIOVASCULAR: Regular rate and rhythm without murmurs, gallops, or rubs. RESPIRATORY: Bilateral expiratory wheezing. GASTROINTESTINAL: Abdomen soft, non-tender, nondistended. No guarding. MUSCULOSKELETAL: Extremities without clubbing, cyanosis, or edema. . No calf tenderness. NEUROLOGICAL: Awake and alert. Motor and sensory grossly within normal limits. Normal speech. Laboratory Laboratory Tests Test 04/06/17 04/06/17 22:25 22:30 Blood Gas Puncture Site RT RADIAL Blood Gas Patient Temperature 98.6 Blood Gas HCO3 27 Blood Gas Base Excess 1.6 Blood Gas Oxygen Saturation 97 Arterial Blood pH 7.33 Arterial Blood Partial 52 Pressure CO2 Arterial Blood Partial 539 Pressure O2 Arterial Blood Oxygen Content 21.3 Arterial Blood 2.5 Carboxyhemoglobin Arterial Blood Methemoglobin 0.7 Blood Gas Hemoglobin 14.6 Oxygen Delivery Device NPPV Blood Gas Ventilator Setting IPAP12/EPAP5 Blood Gas Inspired Oxygen 100 White Blood Count 4.8 Red Blood Count 4.73 Hemoglobin 14.5 Hematocrit 44.1 Mean Corpuscular Volume 93.2 Mean Corpuscular Hemoglobin 30.6 Mean Corpuscular Hemoglobin 32.8 Concent Red Cell Distribution Width 15.3 Platelet Count 236 Mean Platelet Volume 8.2 Neutrophils (%) (Auto) 35.4 Lymphocytes (%) (Auto) 44.3 Monocytes (%) (Auto) 10.2 Eosinophils (%) (Auto) 8.9 Basophils (%) (Auto) 1.2 Neutrophils # (Auto) 1.7 Lymphocytes # (Auto) 2.1 Monocytes # (Auto) 0.5 Eosinophils # (Auto) 0.4 Basophils # (Auto) 0.1 CBC Comment DIFF FINAL Differential Comment Sodium Level 142 Potassium Level 3.4 Chloride Level 105 Carbon Dioxide Level 27.5 Anion Gap 10 Blood Urea Nitrogen 12 Creatinine 1.22 Estimat Glomerular Filtration 74 Rate Random Glucose 133 Calcium Level 8.9 Total Creatine Kinase 873 Creatine Kinase MB 4.3 Creatine Kinase MB % 0.5 Troponin I LESS THAN 0.02 B-Type Natriuretic Peptide 5 Result Diagram: 04/06/17222904/06/172229 Imaging Last 48 hours Impressions Chest X-Ray 04/06/17 1908 Signed Impressions: Service Date/Time: Thursday, April 06, 2017 22:58 - CONCLUSION: No acute cardiopulmonary disease. Evon Eaton MD Assessment and Plan Assessment and Plan Impression: COPD exacerbation History of hypertension Plan: Patient with severe COPD exacerbation upon arrival with dramatic presentation where he was Really short of breath and has to run to open the door of his room and eventually kneel down to breathe. Likely was also having panic attacks. Brought in by EMS on BiPAP. Patient was on BiPAP for a few hours in ER and was eventually weaned off. Currently on nasal cannula but is still having active wheezing. Able to complete sentences. Would continue IV steroids every 6 hours. Nebulizers scheduled every 6 hours, and every 2 hours when necessary. Continue azithromycin by mouth. BNP is within normal limits. No peripheral edema. Can consider to do walk test once patient is stable to be discharged home. DVT prophylaxiswith Lovenox. GI prophylaxis on pantoprazole. Discussed Condition With patient, ER MD, pt's nurse Physician Certification Order for Inpatient Services The services are ordered in accordance with Medicare regulations or non- Medicare payer requirements, as applicable. In the case of services not specified as inpatient-only, they are appropriately provided as inpatient services in accordance with the 2-midnight benchmark. days is the estimated time the patient will need to remain in the hospital, assuming treatment plan goals are met and no additional complications. Eros Dominique MD Apr 07, 2017 03:23
[2017-04-07] MEDS ORDERED: PANTOPRAZOLE SOD 20 MG DELAYED RELEASE TAB PO ONE (04:00)
[2017-04-07] MEDS: RESP: ALBUTEROL 2.5 MG/IPRATROPIUM 0.5 MG NEB (SCH) NEB ×4 (04:26→22:19)
[2017-04-07] MEDS: ACETAMINOPHEN/HYDROcodone 325 MG/5 MG TAB PO PRN ×4 (05:34→23:58)
[2017-04-07] MEDS: methylPREDNISolone SOD SUCC 40 MG/1 ML VIAL IV PUSH SCH ×4 (05:34→23:53)
[2017-04-07] MEDS ORDERED: PANTOPRAZOLE SOD 40 MG DELAYED RELEASE TAB PO SCH (06:00)
[2017-04-07] MEDS: ENOXAPARIN SODIUM 40 MG/0.4 ML SYRINGE SQ SCH (08:28)
[2017-04-07] MEDS: BUDESONIDE-FORMOTEROL 160/4.5 MCG INHALER INH SCH ×2 (08:28→21:46)
[2017-04-07] MEDS: AZITHROMYCIN 250 MG TAB PO SCH (08:29)
[2017-04-07] MEDS: PANTOPRAZOLE SOD 40 MG DELAYED RELEASE TAB PO SCH ×2 (08:29→08:30)
[2017-04-07] MEDS: SODIUM CHLORIDE 0.9% FLUSH 10 ML FLUSH IV FLUSH SCH ×2 (08:30→21:00)
--- NOTE | 2017-04-07 15:24 | EKG ---
Date Performed: 04/06/2017 Time Performed: 22:21:40 PTAGE: 57 years EKG: Sinus rhythm NORMAL ECG Compared to prior tracing no significant change PREVIOUS TRACING 11/16/2016 @22.47 DOCTOR: Corey Valencia Interpretating Date/Time 04/07/2017 15:23:00
[2017-04-08] VITALS: BP 121/73; PULSE 67; RESP 17; TEMP 96; O2SAT 98
[2017-04-08 04:00] VITALS: BP 119/79; PULSE 68; RESP 17; TEMP 96.4; O2SAT 97
[2017-04-08] MEDS: RESP: ALBUTEROL 2.5 MG/IPRATROPIUM 0.5 MG NEB (SCH) NEB ×2 (04:51→07:16)
[2017-04-08] MEDS: methylPREDNISolone SOD SUCC 40 MG/1 ML VIAL IV PUSH SCH ×2 (06:09→12:39)
[2017-04-08] MEDS: ACETAMINOPHEN/HYDROcodone 325 MG/5 MG TAB PO PRN ×2 (06:09→12:40)
[2017-04-08 07:19] VITALS: O2SAT 99
[2017-04-08 08:00] VITALS: BP 153/95; PULSE 75; RESP 18; TEMP 97.1; O2SAT 97
[2017-04-08 08:56] LABS: AUTOMATED NEUTROPHIL # 8.5 TH/MM3 (1.8-7.7); BASOPHIL % 0.2 % (0.0-2.0); HEMATOCRIT 42.4 % (39.0-51.0); HEMO FLAGS DIFF FINAL; LYMPH % 5.5 % (9.0-44.0); LYMPHOCYTE # 0.5 TH/MM3 (1.0-4.8); MEAN CELL VOLUME 92.7 FL (80.0-100.0); MEAN CORPUSCULAR HEMOGLOBIN 30.2 PG (27.0-34.0); MEAN CORPUSCULAR HGB CONC 32.6 % (32.0-36.0); MONO % 4.2 % (0.0-8.0); NEUT % 90.1 % (16.0-70.0); PLATELET COUNT 225 TH/MM3 (150-450); RED BLOOD COUNT 4.58 MIL/MM3 (4.50-5.90); RED CELL DISTRIBUTION WIDTH 14.8 % (11.6-17.2); WHITE BLOOD COUNT 9.4 TH/MM3 (4.0-11.0)
[2017-04-08] MEDS: PANTOPRAZOLE SOD 40 MG DELAYED RELEASE TAB PO SCH ×2 (09:00→09:39)
[2017-04-08 09:28] LABS: BICARBONATE 27.5 MEQ/L (21.0-32.0); POTASSIUM 4.2 MEQ/L (3.5-5.1)
[2017-04-08] MEDS: BUDESONIDE-FORMOTEROL 160/4.5 MCG INHALER INH SCH (09:38)
[2017-04-08] MEDS: SODIUM CHLORIDE 0.9% FLUSH 10 ML FLUSH IV FLUSH SCH (09:39)
[2017-04-08] MEDS: AZITHROMYCIN 250 MG TAB PO SCH (09:39)
[2017-04-08] MEDS: ENOXAPARIN SODIUM 40 MG/0.4 ML SYRINGE SQ SCH (09:40)
[2017-04-08] MEDS ORDERED: HYDR-3516 PO (10:43)
[2017-04-08] MEDS ORDERED: VENTAER INH (10:43)
[2017-04-08] MEDS ORDERED: PRED20 PO (10:43)
[2017-04-08] MEDS ORDERED: SYMB160A INH (10:43)
[2017-04-08] MEDS ORDERED: AMLO10 PO (10:43)
[2017-04-08] MEDS ORDERED: AZIT250T3 PO (10:43)
[2017-04-08] MEDS ORDERED: IPRASOL INH (10:43)
[2017-04-08] MEDS ORDERED: ALBU0.08 NEB (10:43)
--- NOTE | 2017-04-08 11:12 | HHI.DS ---
Discharge Summary Admission Date Apr 07, 2017 at 00:42 Discharge Date: Apr 08, 2017 Admitting Diagnosis COPD exacerbation (1) COPD (chronic obstructive pulmonary disease) ICD Code: J44.9 Procedures None Brief History - From Admission short of breath on exertion few days worsened today had a drink etoh drink and that may have exacerbated it as well as resumed smoking cigarettes and marijuana for several days, last used on 03/28/17 (per pt) . Resumed smoking behaviors after of significant other (over 20 years together) and said he was doing so because he was depressed and "trying to cope ". Has had cough and and painful "stomach muscles because of cough" and been taking "two Lortab 5's" to decrease pain and also sleep. no fever did not help with nebs at home was kneeling over after opening door to breathe nephew called ambulance started urinating and defecating and sweating down on knees while waiting oxygen makes it feel better no nausea/no vomiting diarrhea about 1 week about 2-3 x a day has not taken any medications or antibiotics ran out of inhaler/nebulizer "breathing medications" about one month ago. CBC/BMP: 04/08/17 0748 04/08/17 0748 Significant Findings Laboratory Tests Test 04/06/17 04/06/17 04/08/17 22:25 22:30 07:48 Blood Gas HCO3 27 mmol/L (22-26) Arterial Blood pH 7.33 (7.380-7.420) Arterial Blood Partial 52 mmHg (38-42) Pressure CO2 Arterial Blood Partial 539 mmHG Pressure O2 (61-120) Arterial Blood Oxygen Content 21.3 Vol % (12.0-20.0) Lymphocytes (%) (Auto) 44.3 % 5.5 % (9.0-44.0) (9.0-44.0) Monocytes (%) (Auto) 10.2 % (0.0-8.0) Eosinophils (%) (Auto) 8.9 % (0.0-4.0) Neutrophils # (Auto) 1.7 TH/MM3 8.5 TH/MM3 (1.8-7.7) (1.8-7.7) Potassium Level 3.4 MEQ/L (3.5-5.1) Estimat Glomerular Filtration 74 ML/MIN (>89) 88 ML/MIN (>89) Rate Random Glucose 133 MG/DL 137 MG/DL (74-106) (74-106) Total Creatine Kinase 873 U/L (39-308) Creatine Kinase MB 4.3 NG/ML (0.5-3.6) Troponin I LESS THAN 0.02 NG/ML (0.02-0.05) Neutrophils (%) (Auto) 90.1 % (16.0-70.0) Lymphocytes # (Auto) 0.5 TH/MM3 (1.0-4.8) Imaging Last Impressions Chest X-Ray 04/06/172222 Signed Impressions: Service Date/Time: Tuesday, April 06, 2017 22:58 - CONCLUSION: No acute cardiopulmonary disease. Evon Eaton MD PE at Discharge GENERAL: pt encountered laying a bed, awake, in NAD SKIN: Warm and dry. HEAD: Normocephalic. EYES: No scleral icterus. No injection or drainage. NECK: Supple, trachea midline. No lymphadenopathy. CARDIOVASCULAR: Regular rate and rhythm without murmurs, gallops, or rubs. RESPIRATORY: Slight inhalation wheeze noted base of right lung. Mild expiratory wheeze heard in left upper lobe. No accessory muscle use. GASTROINTESTINAL: Abdomen soft, non-tender, nondistended. MUSCULOSKELETAL: No cyanosis, or edema. PSYCHIATRIC: A&Ox3, noted sadness related to of his female significant other (20 year+ relationship) within the past 3 weeks. Pt mourning. Hospital Course Patient came to [facility] on 04/06/17 with severe COPD exacerbation. He was brought in by EMS on BiPAP and remained on BiPAP for a few hours in ED before being weaned off and transitioned to nasal cannula with active wheezing. While hospitalized, pt received steroids and breathing treatments (duo nebs and Symbicort), Azithromycin 500 mg daily, as well as pain medication for diaphragmatic pain secondary to cough. Pt was able to walk to the bathroom without dyspnea upon exertion over the course of the day on 04/07/17. Condition improved with pt being discharged on 04/08/17. Pt Condition on Discharge: Stable Discharge Disposition: Discharge Home Discharge Time: <= 30 minutes Discharge Instructions DIET: Follow Instructions for: As Tolerated, No Restrictions Activities you can perform: Regular-No Restrictions Follow up Referrals: PCP Follow-up - 1 Week New Medications: Azithromycin (Azithromycin) 250 Mg Tab 500 MG PO DAILY COPD #3 TAB Changed Medications: Hydrocodone-Acetaminophen (Hydrocodone-Acetaminophen) 5-325 mg Tab 1 TAB PO Q6HR PRN pain #20 Ref 0 TAB (Changed from: HS; 6) Prednisone (Prednisone) 20 Mg Tab 40 MG PO BID COPD #6 Ref 0 TAB (Changed from: DAILY; Removed Days) Continued Medications: Albuterol 18 GM Inh (Ventolin Hfa 18 GM Inh) 90 Mcg/Act Aer 2 PUFF INH Q4H PRN SHORTNESS OF BREATH #1 Ref 2 INHALER (This prescription has been renewed) Albuterol Neb (Albuterol Neb) 2.5 Mg/3 Ml Neb 2.5 MG NEB Q4HR NEB While awake Breathing Treatment #60 Ref 2 NEBULE (This prescription has been renewed) Amlodipine (Norvasc) 10 Mg Tab 10 MG PO DAILY Blood Pressure Management #30 Ref 2 TAB (This prescription has been renewed) Budesonide-Formoterol Inh (Symbicort Inh) 160-4.5 Mcg/Act Aero 1 PUFF INH Q12HR COPD #1 Ref 2 INHALER (This prescription has been renewed) Ipratropium-Albuterol Neb (Duoneb) 0.5-2.5 Mg/3 Ml Neb 1 NEBULE INH Q6HR NEB Breathing Treatment #120 Ref 2 NEBULE (This prescription has been renewed) Nick Kirby Jr. Apr 08, 2017 11:12
== END 2017-04-08 15:09 | disposition home or self-care (01) | DRG 192 ==
LOC: NEPE 22:19 → NEDA 04-07 00:42 → N06A 04-07 01:57
PROVIDERS: ADMIT Hospitalist; ATTEND Hospitalist
PROC: 5A09357 Assistance with Respiratory Ventilation, Less than 24 Consecutive Hours, Continuous Positive Airway Pressure (ICD-10-PCS; principal; 2017-04-07)
DX: J44.1 Chronic obstructive pulmonary disease with (acute) exacerbation (principal); I10 Essential (primary) hypertension; F41.0 Panic disorder [episodic paroxysmal anxiety]; F17.210 Nicotine dependence, cigarettes, uncomplicated
CPT/HCPCS: 36600; 71010; 80048; 82550; 82552; 82805; 83880; 84484; 85025; 93005; 94002; 94003; 94640; 94664; 96374; J0456; J1650; J2920; J2930; J7050